=== PATIENT | female | born 1935 | race Caucasian/White ===

== ENCOUNTER → 2017-06-06 | Outpatient (CLI) | payer MEDICARE, OTHER ==
--- NOTE | 2017-06-06 11:00 | US ---
EXAM DESCRIPTION: Venous,Lower Extremity LT CLINICAL HISTORY: EDEMA lower extremity edema COMPARISON: None. TECHNIQUE: 2D grayscale and color venous duplex Doppler evaluation of the lower extremity are obtained from groin to calf. FINDINGS: There is normal flow, augmentation to flow, and compressibility of the deep venous vasculature of the left lower extremity with no ultrasound evidence of deep venous thrombosis. There is a complex fluid collection in the popliteal fossa measuring 6.8 x 2.9 x 1.8 cm with somewhat thickened farris and internal thickened septations. IMPRESSION: No ultrasound evidence of deep venous thrombosis . Complex appearing probable Magaña's cyst of the left knee. Electronically signed by: Chris Nieto MD 06/06/2017 10:45 AM VIRTUALIZATION ENG[employer]ER
== END | disposition home or self-care (01) ==
LOC: RAD 08:13
DX: R60.0 Localized edema (principal)